=== PATIENT | female | born 1980 | race Caucasian/White ===

== ENCOUNTER 2017-04-26 17:42 | Emergency (ER) | payer OTHER ==
[2017-04-26 17:47] VITALS: BP 137/84; PULSE 85; TEMP 98.6; BMI 31.1
--- NOTE | 2017-04-26 18:41 | PDOC ---
History of Present Illness - General Chief Complaint: Foreign Body (FB) Stated Complaint: RIGHT EAR PAIN Time Seen by Provider: 04/26/17 18:28 History Source: Patient Exam Limitations: No Limitations - History of Present Illness Initial Comments: 04/26/17 18:30 36-year-old female presents to the ED with complaints of right ear pain. Patient states is clear with a Q-tip and unsure if a piece of the Q-tip was in her ear or not so decided come to the ER. Patient denies decreased hearing, ear discharge, headache, or dizziness. Timing/Duration: 4-6 hours Severity: mild Associated Symptoms: reports: denies symptoms Past History - Travel Traveled outside of the country in the last 30 days: No Close contact w/someone who was outside of country & ill: No - Past Medical History Allergies/Adverse Reactions: Allergies Allergy/AdvReac Type Severity Reaction Status Date / Time azithromycin [From Zithromax] Allergy Severe Swelling Verified 04/26/17 17:44 Home Medications: Ambulatory Orders NK [No Known Home Medication] 04/26/17 Asthma: No Cancer: No Cardiac Disorders: No Diabetes: No HTN: No Seizures: No Thyroid Disease: No Other medical history: vasovagal syncope - Immunization History Immunization Up to Date: Yes - Psycho/Social/Smoking Cessation Hx Suicidal Ideation: No Smoking History: Never smoked Have you smoked in the past 12 months: No Hx Alcohol Use: No Drug/Substance Use Hx: No Hx Substance Use Treatment: No Patient Lives Alone: No Lives with/in: spouse/SO Review of Systems - Review of Systems Able to Perform ROS?: Yes Constitutional: No: Symptoms Reported HEENTM: Yes: Ear Pain ABD/GI: No: Nausea Neurological: No: Headache, Dizziness *Physical Exam - Vital Signs Last Vital Signs Temp Pulse Resp BP Pulse Ox 98.6 F 85 20 137/84 98 04/26/17 17:45 04/26/17 17:45 04/26/17 17:45 04/26/17 17:45 04/26/17 17:45 - Physical Exam General Appearance: Yes: Nourished, Appropriately Dressed. No: Apparent Distress HEENT: positive: Other (noted white fibrous material lodged in right ear canal) Medical Decision Making - Medical Decision Making 04/26/17 18:40 Using alligator forceps I was able to remove the complete cotton-tipped applicator without difficulty. Ear canal intact TM intact. Patient will be discharged home *DC/Admit/Observation/Transfer Diagnosis at time of Disposition: Foreign body of right ear Qualifiers: Encounter type: initial encounter Qualified Code(s): T16.1XXA - Foreign body in right ear, initial encounter - Discharge Dispostion Disposition: HOME Condition at time of disposition: Improved - Referrals Referrals: Eliel Mendez MD [Primary Care Provider] - - Patient Instructions Printed Discharge Instructions: DI for Removal of Foreign Body From Ear Additional Instructions: Currently you have no restrictions but to be careful and cleaning ears.
== END 2017-04-26 18:48 | disposition home or self-care (01) ==
LOC: JERFT 17:42
DX: T16.1XXA Foreign body in right ear, initial encounter (principal); X58.XXXA Exposure to other specified factors, initial encounter; Y93.9 Activity, unspecified; Y92.9 Unspecified place or not applicable
CPT/HCPCS: 99281-25